=== PATIENT | male | born 1965 | race American Indian/Alaskan Native ===

== ENCOUNTER 2017-01-27 13:36 | Emergency (ER) | payer SELFPAY ==
[2017-01-27 17:20] VITALS: BP 136/92
--- NOTE | 2017-01-28 08:24 | XRay Report ---
ROUTINE CHEST, TWO VIEWS: HISTORY: chest pain, left rib pain. The trachea, heart, mediastinal contour, lung drake and bony thorax are unremarkable. No displaced left rib fracture is detected on x-ray. IMPRESSION: Unremarkable chest x-ray.
== END 2017-01-28 01:50 | disposition left against medical advice (07) ==
LOC: ED 13:36
DX: R07.81 Pleurodynia (principal); W22.8XXA Striking against or struck by other objects, initial encounter; Y93.89 Activity, other specified; Y99.9 Unspecified external cause status; Y92.89 Other specified places as the place of occurrence of the external cause; Z53.21 Procedure and treatment not carried out due to patient leaving prior to being seen by health care provider
CPT/HCPCS: 71020

== ENCOUNTER 2018-02-17 11:21 | Emergency (ER) | payer SELFPAY ==
[2018-02-17] MEDS ORDERED: ASPIRIN PO ONE (11:35)
--- NOTE | 2018-02-17 12:31 | XRay Report ---
ROUTINE CHEST, TWO VIEWS: HISTORY: Left chest pain. The trachea, heart, mediastinal contour, lung drake and bony thorax are unremarkable. IMPRESSION: Unremarkable chest x-ray. No significant change since 01/27/17.
[2018-02-17 12:34] LABS: Basophils % (Auto) 0.6 % (0.0-1.8); Eosinophils # (Auto) 0.1 K/mm3 (0.0-0.4); Eosinophils % (Auto) 0.9 % (0.0-4.3); Hematocrit 43.3 % (35.5-45.6); Hemoglobin 14.8 gm/dl (11.8-15.2); Lymphocytes # (Auto) 1.1 K/mm3 (1.2-5.4); Lymphocytes % (Auto) 19.5 % (13.4-35.0); Mean Corpuscular HGB Conc 34 % (32-34); Mean Corpuscular Hemoglobin 31 pg (28-32); Mean Corpuscular Volume 90 fl (84-94); Monocytes # (Auto) 0.4 K/mm3 (0.0-0.8); Monocytes % (Auto) 7.6 % (0.0-7.3); Platelet Count 199 K/mm3 (140-440); Red Cell Distribution Width 12.8 % (13.2-15.2)
[2018-02-17] MEDS ORDERED: NACL 0.9% 500 ML 500 ML IV ONE (12:40)
--- NOTE | 2018-02-17 12:41 | Emergency Department Report ---
ED General Adult HPI - General Chief complaint: Chest Pain Stated complaint: CHEST PAIN Time Seen by Provider: 02/17/18 12:25 Source: patient, police, EMS (ems notes not available at time of chart dictation), RN notes reviewed Mode of arrival: Stretcher Limitations: No Limitations - History of Present Illness Initial comments: This is a 52-year-old male who is previously known to this provider. He does not have a primary care doctor. He denies chronic medical conditions. He occasionally admits to using recreational crack. Patient was brought to the hospital by EMS for evaluation of chest pain today. He reports the chest pain was central. It lasted for 30-40 seconds. He reports that he did not eat a full breakfast this morning, that he had a light flashes in his eyes, felt sweaty, drained, and felt "weak all over." This has since resolved. He denies headache, neck pain, abdominal pain, DVT/pulmonary embolus risk factors. He has no complaints at this time, and like to go home. -: Sudden Location: chest Radiation: non-radiation Consistency: now resolved Improves with: none Worsens with: none Associated Symptoms: chest pain, diaphoresis, malaise, weakness. denies: confusion, cough, fever/chills, headaches, loss of appetite, nausea/vomiting, rash, seizure, shortness of breath, syncope - Related Data Previous Rx's Medication Instructions Recorded Last Taken Type Aspirin [Aspirin BABY CHEW TAB] 81 mg PO QDAY #30 tab.chew 02/17/18 Unknown Rx Allergies Allergy/AdvReac Type Severity Reaction Status Date / Time No Known Allergies Allergy Verified 04/07/14 23:58 ED Review of Systems ROS: Stated complaint: CHEST PAIN Other details as noted in HPI Comment: All other systems reviewed and negative ED Past Medical Hx - Past Medical History Additional medical history: meningitis - Surgical History Past Surgical History?: No - Social History Smoking Status: Current Every Day Smoker Substance Use Type: Alcohol, Marijuana - Medications Home Medications: Home Medications Medication Instructions Recorded Confirmed Last Taken Type Aspirin [Aspirin BABY CHEW TAB] 81 mg PO QDAY #30 tab.chew 02/17/18 Unknown Rx ED Physical Exam - General Limitations: No Limitations General appearance: alert, in no apparent distress - Head Head exam: Present: atraumatic, normocephalic - Eye Eye exam: Present: normal appearance, PERRL, EOMI, other (visual acuity intact to finger counting, color perception, reading at a close distance). Absent: nystagmus - ENT ENT exam: Present: normal exam, normal orophraynx, mucous membranes moist, normal external ear exam - Neck Neck exam: Present: normal inspection, full ROM - Respiratory Respiratory exam: Present: normal lung sounds bilaterally. Absent: respiratory distress - Cardiovascular Cardiovascular Exam: Present: regular rate, normal rhythm, normal heart sounds. Absent: bradycardia, tachycardia, irregular rhythm, systolic murmur, diastolic murmur, rubs, gallop - GI/Abdominal GI/Abdominal exam: Present: soft, normal bowel sounds. Absent: distended, tenderness, guarding, rebound, rigid, pulsatile mass - Rectal Rectal exam: Present: deferred - Extremities Exam Extremities exam: Present: normal inspection, full ROM, normal capillary refill. Absent: tenderness, pedal edema, joint swelling, calf tenderness - Back Exam Back exam: Present: normal inspection, full ROM. Absent: tenderness, CVA tenderness (R), paraspinal tenderness, vertebral tenderness - Neurological Exam Neurological exam: Present: alert, oriented X3, CN II-XII intact, normal gait, other (Extraocular movements intact. Tongue midline. No facial droop. Facial sensation intact to light touch in the V1, V2, V3 distribution bilaterally. 5 and 5 strength in 4 extremities.. Sensation is intact to light touch in 4 extremities.). Absent: motor sensory deficit - Psychiatric Psychiatric exam: Present: normal affect, normal mood - Skin Skin exam: Present: warm, dry, intact, normal color. Absent: rash ED Course Vital Signs 02/17/18 02/17/18 02/17/18 11:28 11:40 11:45 Temperature 98.2 F Pulse Rate 66 66 Respiratory 14 15 Rate Blood Pressure 103/71 135/81 O2 Sat by Pulse 97 98 98 Oximetry 02/17/18 02/17/18 02/17/18 12:00 12:19 12:31 Temperature Pulse Rate 65 70 Respiratory 14 13 11 L Rate Blood Pressure 126/78 126/78 126/78 O2 Sat by Pulse 99 97 99 Oximetry 02/17/18 02/17/18 02/17/18 12:45 13:00 13:15 Temperature Pulse Rate 75 67 73 Respiratory 15 15 17 Rate Blood Pressure 132/77 147/95 126/78 O2 Sat by Pulse 99 99 94 Oximetry 02/17/18 02/17/18 02/17/18 13:30 13:53 14:01 Temperature Pulse Rate 61 Respiratory 15 Rate Blood Pressure 156/93 156/93 156/93 O2 Sat by Pulse 99 98 98 Oximetry 02/17/18 02/17/18 02/17/18 14:15 14:31 15:05 Temperature Pulse Rate Respiratory 14 Rate Blood Pressure 156/93 156/93 O2 Sat by Pulse 99 97 97 Oximetry ED Medical Decision Making - Lab Data Result diagrams: 02/17/18 12:01 02/17/18 12:01 Vital Signs 02/17/18 02/17/18 02/17/18 11:28 11:40 11:45 Temperature 98.2 F Pulse Rate 66 66 Respiratory 14 15 Rate Blood Pressure 103/71 135/81 O2 Sat by Pulse 97 98 98 Oximetry 02/17/18 02/17/18 02/17/18 12:00 12:19 12:31 Temperature Pulse Rate 65 70 Respiratory 14 13 11 L Rate Blood Pressure 126/78 126/78 126/78 O2 Sat by Pulse 99 97 99 Oximetry 02/17/18 02/17/18 02/17/18 12:45 13:00 13:15 Temperature Pulse Rate 75 67 73 Respiratory 15 15 17 Rate Blood Pressure 132/77 147/95 126/78 O2 Sat by Pulse 99 99 94 Oximetry 02/17/18 02/17/18 02/17/18 13:30 13:53 14:01 Temperature Pulse Rate 61 Respiratory 15 Rate Blood Pressure 156/93 156/93 156/93 O2 Sat by Pulse 99 98 98 Oximetry 02/17/18 02/17/18 02/17/18 14:15 14:31 15:05 Temperature Pulse Rate Respiratory 14 Rate Blood Pressure 156/93 156/93 O2 Sat by Pulse 99 97 97 Oximetry Lab Results 02/17/18 02/17/18 02/17/18 Range/Units 12:01 12:01 14:26 WBC 5.8 (4.5-11.0) K/mm3 RBC 4.80 (3.65-5.03) M/mm3 Hgb 14.8 (11.8-15.2) gm/dl Hct 43.3 (35.5-45.6) % MCV 90 (84-94) fl MCH 31 (28-32) pg MCHC 34 (32-34) % RDW 12.8 L (13.2-15.2) % Plt Count 199 (140-440) K/mm3 Lymph % (Auto) 19.5 (13.4-35.0) % Evans % (Auto) 7.6 H (0.0-7.3) % Eos % (Auto) 0.9 (0.0-4.3) % Baso % (Auto) 0.6 (0.0-1.8) % Lymph # 1.1 L (1.2-5.4) K/mm3 Evans # 0.4 (0.0-0.8) K/mm3 Eos # 0.1 (0.0-0.4) K/mm3 Baso # 0.0 (0.0-0.1) K/mm3 Seg Neutrophils % 71.4 H (40.0-70.0) % Seg Neutrophils # 4.1 (1.8-7.7) K/mm3 Sodium 138 (137-145) mmol/L Potassium 4.5 (3.6-5.0) mmol/L Chloride 103.4 (98-107) mmol/L Carbon Dioxide 26 (22-30) mmol/L Anion Gap 13 mmol/L BUN 12 (9-20) mg/dL Creatinine 0.6 L (0.8-1.5) mg/dL Estimated GFR > 60 ml/min BUN/Creatinine Ratio 20 % Glucose 92 (75-100) mg/dL Calcium 9.1 (8.4-10.2) mg/dL Troponin T < 0.010 < 0.010 (0.00-0.029) ng/mL - EKG Data -: EKG Interpreted by Ga - EKG Data 02/17/18 15:40 EKG #1 demonstrates normal sinus, 65 bpm, normal axis, normal intervals, not consistent with a STEMI. EKG #2 was unchanged. - Radiology Data Radiology results: report reviewed, image reviewed X-ray the chest is negative. Noncontrast CT scan of the brain is negative. The CT angiogram of the head and neck were negative for significant disease. - Medical Decision Making Differential diagnosis, including but not limited to: Resolved hypoglycemia, aortic disease, acute coronary syndrome, transient ischemic attack, pneumonia Assessment and plan: 52-year-old male, no pulmonary embolus or DVT risk factors , low risk by well's criteria, low risk by heart score, low risk by YARED score, NIH score of 0, ABCD 2 score of 0, with nonspecific resolved chest pain that lasted for a few seconds, and the reported visual disturbance. Visual acuity is intact to finger counting, color perception, and reading at a close distance. His neurologic examination is otherwise unremarkable. Troponins were negative 2, EKG was unchanged 2, CT scan of the brain, CT angiograms were all negative. Patient observed in the ER for hours without clinical decompensation. He is walking around the ER and is making multiple requests to go home. He is clinically sober at this time. He will be started on aspirin, and instructed to follow up with outpatient primary care, cardiology, neurology. Return precautions are reviewed. Fingerstick/glucose is appropriate at this time. Critical care attestation.: If time is entered above; I have spent that time in minutes in the direct care of this critically ill patient, excluding procedure time. ED Disposition Clinical Impression: Chest pain, History of visual disturbance Disposition: DC-01 TO HOME OR SELFCARE Is pt being admited?: No Does the pt Need Aspirin: No Condition: Good Instructions: Chest Pain (ED) Additional Instructions: Make certain to eat at least 3 full meals a day. Take the aspirin as directed. follow up with a sugar reprocess operator head as directed within the next week. Follow up with a primary care doctor or neurologist doctor within the next 2-3 days. Return to the ER right away with fevers, chills, lethargy, irritability, productive vomiting, change in mental status, confusion, inability to tolerate liquid feeds. Referrals: PRIMARY CAREMD [Primary Care Provider] - 3-5 Days [facility] [Provider Group] - 3-5 Days [facility] [Provider Group] - 3-5 Days ERIC CHUNG MD [Referring] - 3-5 Days ALEKS LAZAR MD [Staff Physician] - 3-5 Days [facility] [Provider Group] - 3-5 Days Forms: Work/School Release Form(ED)
[2018-02-17 12:51] LABS: BUN/Creatinine Ratio 20; Blood Urea Nitrogen 12 mg/dL (9-20); Calcium 9.1 mg/dL (8.4-10.2); Hemolysis Index 9
--- NOTE | 2018-02-17 14:51 | Cat Scan Report ---
CT HEAD WITHOUT CONTRAST: HISTORY: Neurologic symptoms, TIA. TECHNIQUE: Sequential 2.5mm CT images. COMPARISON: none. FINDINGS: Cerebral Parenchyma: Within normal limits. Cerebellum: Within normal limits. Brainstem: Within normal limits. Ventricles: Normal. Sella: Normal. Extra-axial spaces: Normal. Basal Cisterns: Normal. Intracranial Hemorrhage: None. Midline Shift: None. Calvarium: Normal. Sinuses: Normal. Mastoid Air Cells: Normal. Visualized Orbits: Normal. IMPRESSION: Cranial CT scan within normal limits.
--- NOTE | 2018-02-17 14:53 | Cat Scan Report ---
CTA NECK: HISTORY: None. TECHNIQUE: Helical CT following IV contrast. Sagittal and coronal reformatted images. 3D volume rendering technique. Stenosis was calculated using NASCET criteria with the distal ICA being standard diameter. FINDINGS: The visualized aortic arch, innominate artery and proximal bilateral subclavian arteries are widely patent with less than 20% stenosis. Within the right carotid system: Less than 20% stenosis. Within the left carotid system: Less than 20% stenosis. The cervical vertebral arteries are patent with less than 20% stenosis. IMPRESSION: Unremarkable CTA of the neck.
--- NOTE | 2018-02-17 14:54 | Cat Scan Report ---
CTA HEAD: HISTORY: TIA. TECHNIQUE: Helical CT images after IV contrast with 0.625mm reformations. Sagittal and coronal reformats. Rotational MIP images. 3D volume rendering technique. FINDINGS: The arterial structures of the anterior and posterior circulations are patent throughout. No evidence for stenosis, occlusion or aneurysm. IMPRESSION: Unremarkable CTA head.
[2018-02-17 15:44] VITALS: BP 160/74
== END 2018-02-17 15:57 | disposition home or self-care (01) ==
LOC: ED 11:21
DX: R07.89 Other chest pain (principal); F17.200 Nicotine dependence, unspecified, uncomplicated; F12.10 Cannabis abuse, uncomplicated
CPT/HCPCS: 36415; 70450; 70496; 70498; 71046; 80048; 84484; 85025; 93005; 93010; 99285; J7040; Q9967